=== PATIENT | male | born 1970 | race Caucasian/White ===

== ENCOUNTER 2022-12-20 06:02 | Emergency (ER) | payer OTHER ==
[~2022-12-20] VITALS: Ht 175.3 cm; Wt 81.6 kg
[~2022-12-20 06:02] MED LIST: ALBU8.5H8 INH; PRED50TA PO
--- NOTE | 2022-12-20 06:08 | NUR ---
BIBS FOR C/O SOB SINCE LAST NIGHT, +WHEEZING BILATERAL LUNGS. PATIENT IS AAOX4. ABLE TO MAKE NEEDS KNOWN. VITALS CHECKED.
--- NOTE | 2022-12-20 06:10 | NUR ---
SEEN BY DR MUNOZ AT BEDSIDE
[2022-12-20] MEDS ORDERED: predniSONE 20 MG TABLET ONE (06:18)
[2022-12-20] MEDS ORDERED: IPRATROPIUM NEB FS 0.5 MG/2.5 ML AMPUL.NEB ONE ×2 (06:23→08:26)
[2022-12-20] MEDS ORDERED: ALBUTEROL FS 2.5 MG/3 ML VIAL.NEB ONE ×2 (06:23→08:25)
--- NOTE | 2022-12-20 06:25 | NUR ---
IV CANNULA G20 INSERTED ON LEFT AC. BLOOD DRAWN AND SENT TO LAB
--- NOTE | 2022-12-20 06:29 | NUR ---
XRAY DONE AT BEDSIDE
[2022-12-20] MEDS ORDERED: ALBUTEROL FS 2.5 MG/3 ML VIAL.NEB CONTNEB ONE ×2 (06:30→08:00)
[2022-12-20] MEDS ORDERED: predniSONE 20 MG TABLET PO ONE (06:30)
[2022-12-20] MEDS ORDERED: IPRATROPIUM NEB FS 0.5 MG/2.5 ML AMPUL.NEB NEB ONE ×2 (06:30→08:00)
[2022-12-20] MEDS ORDERED: IV NS 0.9% 500 ML BAG IV ONE (06:30)
[2022-12-20 06:59] LABS: BASOPHILS # (AUTO) 0.1 K/uL (0.0-0.2); BASOPHILS % (AUTO) 0.8 % (0.0-2.0); EOSINOPHILS % (AUTO) 4.8 % (0.0-6.0); HEMATOCRIT 45 % (39-51); HEMOGLOBIN 13.9 g/dL (13.5-17.5); LYMPHOCYTES # (AUTO) 2.4 K/uL (0.8-4.8); LYMPHOCYTES % (AUTO) 24.4 % (20.0-44.0); MEAN CORPUSCULAR HGB CONC 31 g/dl (31.0-36.0); MEAN CORPUSCULAR VOLUME 75 fL (80-96); MONOCYTES % (AUTO) 10.3 % (2.0-12.0); NEUTROPHILS # (AUTO) 5.8 K/uL (1.8-8.9); NEUTROPHILS % (AUTO) 59.7 % (43.0-81.0); PLATELET COUNT (AUTO) 268 K/uL (150-450); WHITE BLOOD COUNT (AUTO) 9.8 K/uL (4.3-11.0)
[2022-12-20 07:47] LABS: ALANINE AMINOTRANSFERASE 44 U/L (12-78); ALBUMIN 4.3 g/dL (3.4-5.0); ALKALINE PHOSPHATASE 85 U/L (46-116); ASPARTATE AMINOTRANSFERASE 20 U/L (15-37); BILIRUBIN,DIRECT 0.2 mg/dL (0.0-0.2); BILIRUBIN,TOTAL 0.5 mg/dL (0.2-1.0); CALCIUM, SERUM 9.3 mg/dL (8.5-10.1); CARBON DIOXIDE 26 mmol/L (21-32); CHLORIDE 102 mmol/L (98-107); GLUCOSE 121 mg/dL (74-106); POTASSIUM 4.1 mmol/L (3.5-5.1); SODIUM SERUM 137 mmol/L (136-145); UREA NITROGEN, BLOOD 16 mg/dL (7-18)
--- NOTE | 2022-12-20 08:30 | NUR ---
RT AT BEDSIDE FOR BREATHING TREATMENT.
--- NOTE | 2022-12-20 08:56 | NUR ---
DR. MUNOZ AT BEDSIDE
--- NOTE | 2022-12-20 09:34 | NUR ---
AMBULATED PT. O2 SAT 95% ROOM AIR. STEADY GAIT. NO COMPLAINTS OF CHEST PAIN OR SOB. PT STATES " I FEEL MUCH BETTER, I WANT TO GO HOME".
[2022-12-20] MEDS ORDERED: ALBU8.5H8 INH (09:36)
[2022-12-20] MEDS ORDERED: PRED50TA PO (09:36)
[2022-12-20 10:02] VITALS: BP 130/82
--- NOTE | 2022-12-20 10:02 | NUR ---
Patient discharged to home in stable condition. Written and verbal after care instructions given. Patient verbalizes understanding of instruction.IV removed. Catheter intact and site benign. Pressure and 4x4 applied to site. No bleeding noted.
== END 2022-12-20 10:04 | disposition home or self-care (01) ==
LOC: ER 06:05
DX: R06.2 Wheezing (principal); Z86.16 Personal history of COVID-19; Z79.51 Long term (current) use of inhaled steroids; Z79.52 Long term (current) use of systemic steroids
CPT/HCPCS: 99285; 71045; 93005; 85025; 80048; 87040 ×2; 83605; 80076; 36415; 84484; 83880; 94799; 94644; 94645; J7512; J7040 ×2; A4649